=== PATIENT | female | born 1995 | race Caucasian/White ===

== ENCOUNTER 2021-09-10 16:32 | Inpatient (IN) ==
[2021-09-10] MEDS ORDERED: Haloperidol 5 mg/ml SDV IV/IM 5 MG/ML AMP ONE (17:00)
[2021-09-10] MEDS ORDERED: diPHENhydraMINE IV 50 MG/ML 1 ml VIAL (BENADRYL) ONE (17:00)
[2021-09-10] MEDS ORDERED: LORazepam 2 mg VIAL 1 ml ONE (17:27)
[2021-09-10 18:02] LABS: Urine Appearance Cloudy; Urine Bilirubin Negative (Negative); Urine Blood 1+ (Negative); Urine Color Yellow; Urine Glucose Negative (Negative); Urine Ketones 2+ (Negative); Urine Nitrite Negative (Negative); Urine Protein 1+(30 mg/dL) (Negative); Urine Urobilinogen Negative (Negative)
[2021-09-10 18:04] LABS: Urine Bacteria 1+ (Absent); Urine Red Blood Cell Trace(0-2/hpf) (Absent); Urine Squamous Epithelial Cell Present (Absent); Urine White Blood Cell Trace(0-5/hpf) (Absent)
[2021-09-10 18:05] LABS: Urine Benzodiazepine Screen None Detected (None Detect); Urine Cannabinoids Screen Presumptive Positive (None Detect); Urine Opiates Screen None Detected (None Detect)
[2021-09-10 19:02] LABS: ABS Monocytes 0.4 10^3/ul (0-0.8); ABS Neutrophils 10.6 10^3/ul (1.5-7.7); Eosinophil % 0.1 %; Hematocrit 44 % (35-47); Hemoglobin 14.9 g/dL (12.0-16.0); Lymphocyte % 8.1 %; Mean Corpuscular HGB Conc 34 g/dL (31-36); Mean Corpuscular Hemoglobin 31 pg (27-31); Mean Corpuscular Volume 91 fL (80-97); Mean Platelet Volume 9.1 fL (7.4-10.4); Platelet Count 233 10^3/uL (150-450); Red Blood Count 4.81 10^6 /uL (3.70-4.87); Red Cell Distribution Width 13 % (10-15)
[2021-09-10 19:15] LABS: ALT 20 U/L (7-52); AST 21 U/L (13-39); Acetaminophen < 15 mcg/mL; Albumin 5.1 g/dL (3.2-5.2); Albumin/Globulin Ratio 2.3 (1-3); Alcohol, S < 13 mg/dL (<13); Alkaline Phosphatase 59 U/L (35-149); Anion Gap 13 mmol/L (2-11); Blood Urea Nitrogen 7 mg/dL (6-24); CO2 Carbon Dioxide 20 mmol/L (22-32); Calcium 9.8 mg/dL (8.6-10.3); Chloride 104 mmol/L (101-111); Globulin 2.2 g/dL (2-4); Glucose 103 mg/dL (70-100); Potassium 3.6 mmol/L (3.5-5.0); Salicylate < 2.50 mg/dL (<30); Sodium 137 mmol/L (135-145); Total Protein 7.3 g/dL (6.4-8.9); eGFR CKD-EPI 109.4 (>60)
[2021-09-10 19:28] LABS: TSH Ultra Thyroid Stim Horm 1.56 mcIU/mL (0.34-5.60)
[2021-09-11] MEDS ORDERED: chlorproMAZINE TAB 50 MG PO PRN (06:14)
[2021-09-11] MEDS ORDERED: Al Hydrox/Mg Hydrox/Simet LIQ 30 ML UDC PO PRN (06:14)
[2021-09-11] MEDS: Vitamin THERAPEUTIC TAB PO SCH (10:00)
[2021-09-12 08:04] LABS: HDL Cholesterol 33.6 mg/dL
[2021-09-12] MEDS: Vitamin THERAPEUTIC TAB PO SCH (11:10)
[2021-09-13] MEDS: Vitamin THERAPEUTIC TAB PO SCH (07:32)
[2021-09-13] MEDS: Nicotine GUM 2MG FRUIT FLAVOR PO PRN ×2 (07:34→20:11)
[2021-09-14] MEDS: Vitamin THERAPEUTIC TAB PO SCH (08:15)
[2021-09-14] MEDS: Nicotine GUM 2MG FRUIT FLAVOR PO PRN (08:16)
[2021-09-14 09:18] VITALS: BP 142/103
== END 2021-09-14 09:23 | disposition home or self-care (01) | DRG 753 ==
LOC: ED 16:32 → EDHOLD 09-11 03:40 → BSU 09-11 04:58
PROVIDERS: ADMIT Psychiatry & Neurology Addiction Psychiatry; ATTEND Psychiatry & Neurology Psychiatry